=== PATIENT | male | born 1945 | race Caucasian/White ===

== ENCOUNTER 2018-09-04 08:28 | Inpatient (IN) | payer MEDICARE ==
[2018-09-04] VITALS (21 sets, daily range): BP systolic 80–183; BP diastolic 46–145
[~2018-09-04] VITALS: Ht 172.7 cm; Wt 99.8 kg
--- NOTE | 2018-09-04 08:28 | NUR ---
PATIENT BIB PARAMEDICS TO BED 12 AT THIS TIME.
--- NOTE | 2018-09-04 08:28 | NUR ---
STOREKEEPER HELPER AT BEDSIDE FOR BI-PAP.
[2018-09-04] MEDS ORDERED: NACL 0.9% 500 ML IV SCH (08:39)
[2018-09-04 09:05] LABS: BASOPHILS % (AUTO) 0.3 % (0.0-2.0); EOSINOPHILS % (AUTO) 0.1 % (0.0-4.0); HEMATOCRIT 43.5 % (36-52); HEMOGLOBIN 14.6 g/dL (12.0-18.0); LYMPHOCYTES # (AUTO) 1.2 K/uL (2.0-11.5); LYMPHOCYTES % (AUTO) 7.3 % (20.5-51.1); MEAN CORPUSCULAR HEMOGLOBIN 33 pg (27-31); MEAN CORPUSCULAR HGB CONC 34 g/dL (33-37); MEAN CORPUSCULAR VOLUME 96.7 fL (80-94); MONOCYTES # (AUTO) 0.3 K/uL (0.8-1.0); NEUTROPHILS # (AUTO) 14.7 K/uL (1.8-7.7); NEUTROPHILS % (AUTO) 90.3 % (42.2-75.2); PLATELET COUNT (AUTO) 327 K/uL (140-450); WHITE BLOOD COUNT (AUTO) 16.3 K/uL (4.8-10.8)
--- NOTE | 2018-09-04 09:05 | NUR ---
UPDATED IN THE LOBBY OF PT CONDITION
--- NOTE | 2018-09-04 09:05 | NUR ---
BIBA C/O SOB AND RT SIDED CP X3 HOURS. PT RR SHALLOW AND RAPID AT 33/MIN, O2 SAT AT 100% ON CPAP. PT REPORTS SHARP RT SIDED CP THAT RADIATES TO LT ARM. Put on monitor, IVF & respiritory ventilator. DENIES N/V/D; SKIN IS PINK/WARM/DRY; AAOX4 WITH EVEN; Wheezing auscultated; Tachycardia; PT DENIES ANY FEVER COUGH AT THIS TIME; PATIENT STATES PAIN OF 8/10 AT THIS TIME; VSS; PATIENT POSITIONED FOR COMFORT; HOB ELEVATED; BEDRAILS UP X2; BED DOWN. ER MD MADE AWARE OF PT STATUS.
[2018-09-04 09:16] LABS: ANION GAP 10.6 (8-16); CARBON DIOXIDE 30.5 mmol/L (21-32); CHLORIDE 97 mmol/L (98-107); CREATININE 1.1 mg/dL (0.7-1.3); GLUCOSE 230 mg/dL (74-106); POTASSIUM 4.1 mmol/L (3.5-5.1); SODIUM SERUM 134 mmol/L (136-145); UREA NITROGEN, BLOOD 21 mg/dL (7-18)
[2018-09-04 09:19] LABS: PROTHROMBIN TIME 10.1 secs (10.8-13.4)
[2018-09-04 09:23] LABS: ASPARTATE AMINOTRANSFERASE 18 U/L (15-37); TOTAL BILIRUBIN 1.1 mg/dL (0.0-1.0)
--- NOTE | 2018-09-04 10:33 | NUR ---
PT WAS NOT ABLE TO PEE. TRIED TWICE TO PUT URINE CATHETHER IN HIM BUT WAS UNABLE TO GET URINE. PT PEED BY HIMSELF.
[2018-09-04 10:41] LABS: APPEARANCE,URINE CLEAR (CLEAR); BILIRUBIN,URINE NEGATIVE (NEGATIVE); BLOOD, URINE 1+ (NEGATIVE); COLOR,URINE YELLOW (YELLOW); LEUKOCYTE ESTERASE ,URINE NEGATIVE (NEGATIVE); NITRITE, URINE NEGATIVE (NEGATIVE); PH,URINE 5.5 (5.0-9.0); UGLUCOSE NEGATIVE (NEGATIVE)
[2018-09-04] MEDS ORDERED: ASPIRIN 81 MG TAB.CHEW PO ONE (10:50)
[2018-09-04] MEDS ORDERED: LEVOFLOXACIN 500 MG/D5W PREMIX 100 ML IV ONE (10:50)
[2018-09-04] MEDS ORDERED: AZITHROMYCIN 1,000 MG in DEXTROSE 5% 500 ML IV ONE (10:50)
[2018-09-04] MEDS ORDERED: KETOROLAC 30 MG/ML VIAL IVP ONE (10:55)
[2018-09-04] MEDS ORDERED: AZITHROMYCIN 500 MG INJ VIAL IV ONE (11:05)
[2018-09-04 11:11] LABS: RBC,URINE 0-5 /HPF (0-5); WBC,URINE 0-5 /HPF (0-5)
--- NOTE | 2018-09-04 11:45 | NUR ---
PT HAS DONE WITH CT CONSENT FORM. CALLED CT ALREADY AND PT IS READT.
--- NOTE | 2018-09-04 11:57 | NUR ---
PT'S BLOOD PRESSURE IS 92/56 MMHG, HR 123, SAT 99%. DR GOMEZ MADE AWARE.
[2018-09-04] MEDS ORDERED: NACL 0.9% 1,000 ML IV ONE (12:00)
--- NOTE | 2018-09-04 12:03 | NUR ---
PT TO CT VIA CEM WITH RT/RN AND TECH IN STABLE CONDITION
--- NOTE | 2018-09-04 12:20 | NUR ---
Transported PT to CT and back with no incidents PT displayed no distress at the this time
[2018-09-04] MEDS ORDERED: HYDROCORTISONE NA SUCC 100 MG/2 ML VIAL IV ONE (14:05)
--- NOTE | 2018-09-04 15:46 | NUR ---
TALK TO RESIDENT ATHLETIC TRAINER GERALD AT [facility] FOR UPDATED INFORMATION OF PT
[2018-09-04] MEDS ORDERED: ENOXAPARIN 100 MG/ML SYR SUBQ ONE (15:55)
[2018-09-04] MEDS ORDERED: HYDROcodone/APAP 7.5/325 MG 1 TAB PO PRN (16:45)
[2018-09-04] MEDS ORDERED: DEXT 5% /NACL 0.9% 1,000 ML IV SCH ×2 (16:45→23:00)
[2018-09-04] MEDS ORDERED: ONDANSETRON 4 MG/2 ML VIAL IVP PRN (16:45)
[2018-09-04] MEDS ORDERED: ACETAMINOPHEN 325 MG TAB PO PRN (16:45)
--- NOTE | 2018-09-04 17:00 | NUR ---
RECEIVED PT TRANSFERRED FROM ER VIA GURNEY, REPORT OBTAINED AT BEDSIDE, PT IS AAOX4, ABLE TO FOLLOW COMMANDS AND MAKE NEEDS KNOWN, BP 138/71. HR 106, RR 25, TEMP 98.6F, O2 SAT 95%, DENIES PAIN, NO S/S OF DISTRESS, ON BIPAP, DIMINISHED LUNG SOUNDS ANGEL. A-FIB ON OPERATIONS STAFF SPECIALIST SECURITY, DENIES CHEST PAIN, SOFT ABDOMEN WITH ACTIVE BOWEL SOUNDS, CONTINENT WITH B&B'S, ABLE TO MOVE ALL EXTREMITIES, SKIN IS WARM AND DRY TO TOUCH, INTACT, IV SITE TO LEFT AC, 18GA, AND RIGHT HAND 22GA, PATENT AND SL. HOB ELEVATED 30 DEGREES, SAFETY MEASURES IN PLACE, INITIAL ASSESSMENT COMPLETED, WILL CONTINUE TO MONITOR.
--- NOTE | 2018-09-04 17:00 | NUR ---
PT TRANSPORTED TO ICU 3 WITHOUT INCIDENT.
--- NOTE | 2018-09-04 17:00 | NUR ---
Patient will be admitted to care of DR. ALLRED. Admited to ICU. Will go to room 3. Belongings list completed. Report to EDIS MCKEON.
--- NOTE | 2018-09-04 18:00 | NUR ---
ACCU CHECK WITH 306MG/DL, MD AWARE, WAITING FOR ORDERS.
--- NOTE | 2018-09-04 18:15 | NUR ---
REPORT GIVEN TO CRANE CREW SUPERVISOR NURSE AT BEDSIDE FOR CONTINUE OF CARE. PT IS AGITATED, WILL INTUBATED PER DR. CASTANO. Addendum: 09/04/18 at 1923 by Zuleyma Sanders RN WRONG TIME.
[2018-09-04] MEDS ORDERED: ALBUTEROL SULFATE/IPRATROPIU 3 ML SOL IH PRN (18:20)
[2018-09-04] MEDS ORDERED: DEXTROSE 50% 50 ML SYR IVP PRN (18:20)
[2018-09-04] MEDS ORDERED: ATOR40TA PO (18:24)
[2018-09-04] MEDS ORDERED: CLOP75TA26 PO (18:24)
[2018-09-04] MEDS ORDERED: GABA100C PO (18:24)
[2018-09-04 18:46] LABS: CHOL/HDL RATIO 1.6 (1-4.5); FREE T4 (FREE THYROXINE) 1.22 ng/dL (0.76-1.46); MAGNESIUM 1.2 mg/dL (1.8-2.4); PHOSPHORUS 3.7 mg/dL (2.5-4.9); THYROID STIMULATING HORMONE 1.46 uIU/mL (0.34-3.74)
--- NOTE | 2018-09-04 18:55 | NUR ---
DR. CASTANO CAME IN TO SEE PT AT BEDSIDE, WILL FOLLOW UP WITH NEW ORDERS.
[2018-09-04] MEDS ORDERED: MAG SULF 2000 MG/WATER PREMIX 50 ML IV ONE (19:00)
[2018-09-04] MEDS ORDERED: LEVOFLOXACIN 750 MG/D5W PREMIX 150 ML IV SCH (19:00)
[2018-09-04] MEDS: INSULIN LISPRO SLIDING SCALE 100 UNITS/ML VIAL SUBQ PRN ×2 (19:02→21:57)
[2018-09-04] MEDS ORDERED: NACL 0.9% 1,000 ML IV SCH (19:10)
--- NOTE | 2018-09-04 19:15 | NUR ---
REPORT GIVEN TO SUPERVISOR POLISHING NURSE AT BEDSIDE FOR CONTINUE OF CARE. PT IS AGITATED, WILL INTUBATED PER DR. CASTANO.
[2018-09-04] MEDS ORDERED: ROCURONIUM 50 MG/5 ML VIAL IV ONE (19:20)
[2018-09-04] MEDS ORDERED: ETOMIDATE 20 MG/10 ML VIAL IVP ONE (19:20)
--- NOTE | 2018-09-04 19:30 | NUR ---
pt was found on CPAP 10. EYAD AT BEDSIDE. DECIDED TO INTUBATE PT DUE TO INCREASED WORK OF BREATHING. PT WAS INTUBATED AT 1930 WITH A 7.5 ETT SECURED AT 23 MID LIP LINE. PT IS SEDATED AND IN NO CURRENT DISTRESS. ABG PENDING.
[2018-09-04] MEDS: ALBUTEROL SULFATE/IPRATROPIU 3 ML SOL IH SCH (19:40)
--- NOTE | 2018-09-04 19:40 | NUR ---
DR. CASTANO TO INTUBATE AT THIS TIME. RT AT BEDSIDE. RSI KIT USED.
[2018-09-04] MEDS ORDERED: PROPOFOL 1000 MG/100 ML PREMIX 100 ML IV ONE (19:43)
--- NOTE | 2018-09-04 20:10 | NUR ---
STARTED PROPOFOL DRIP. 5MCG/KG/MIN = 3ML. DRY WEIGHT USED 100KG
[2018-09-04] MEDS: PROPOFOL 1000 MG/100 ML PREMIX 100 ML IV PRN ×2 (20:39→23:15)
--- NOTE | 2018-09-04 20:55 | NUR ---
PT RESTLESS AT THIS TIME. CONTINUE TO BITE TUBE AND ATTEMPT TO FREE SELF FROM RESTRAINTS. PROPOFOL TITRATED UP TO 10 MCG/KG/MIN.
[2018-09-04] MEDS ORDERED: ENOXAPARIN 100 MG/ML SYR SUBQ SCH (21:00)
[2018-09-04] MEDS ORDERED: LOVENOX 1MG/KG Q12H SUBQ SCH (21:00)
[2018-09-04] MEDS: DOCUSATE SODIUM 100 MG GELCAP PO SCH (21:00)
--- NOTE | 2018-09-04 21:10 | NUR ---
PT RESTLESS AT THIS TIME. CONTINUE TO BITE TUBE AND ATTEMPT TO FREE SELF FROM RESTRAINTS. PROPOFOL TITRATED UP TO 15 MCG/KG/MIN.
[2018-09-04] MEDS: methylPREDNISolone SS 125 MG/2 ML VIAL IVP SCH (21:14)
--- NOTE | 2018-09-04 21:25 | NUR ---
PT CONTINUES TO BITE TUBE AND ATTEMPT TO FREE SELF FROM RESTRAINTS. PROPOFOL TITRATED UP TO 20 MCG/KG/MIN.
[2018-09-04] MEDS: BLOOD GLUCOSE MONITORING 1 DEV DEV FS SCH (21:41)
[2018-09-04] MEDS: PIPER/TAZO 3.375GM/D5W PREMIX 50 ML IV SCH (21:45)
[2018-09-04] MEDS ORDERED: PIPERACILLIN/TAZOBACTAM 3.375 GM VIAL IV ONE (21:49)
--- NOTE | 2018-09-04 21:50 | NUR ---
PT ATTEMPTS TO FREE SELF FROM RESTRAINTS. PROPOFOL TITRATED UP TO 25 MCG/KG/MIN.
[2018-09-04] MEDS ORDERED: DEXT 5% / NACL 0.9% 500 ML IV SCH (21:55)
--- NOTE | 2018-09-04 21:56 | NUR ---
SPUTUM SAMPLE OBTAINED. WILL SEND TO LAB.
--- NOTE | 2018-09-04 22:10 | NUR ---
PT AGITATED AT THIS TIME. CONTINUES TO BITE TUBE AND ATTEMPT TO FREE SELF FROM RESTRAINTS. PROPOFOL TITRATED UP TO 30 MCG/KG/MIN.
--- NOTE | 2018-09-04 22:25 | NUR ---
PT RESTLESS AT THIS TIME. CONTINUES TO BITE TUBE AND ATTEMPT TO FREE SELF FROM RESTRAINTS. PROPOFOL TITRATED UP TO 35 MCG/KG/MIN.
--- NOTE | 2018-09-04 23:06 | NUR ---
RECEIVED CRITICAL LAB TROPONIN 0.788. MADE AWARE
--- NOTE | 2018-09-04 23:38 | NUR ---
OGT AND GASTELUM CATH INSERTED AT THIS TIME. PT TOLERATED WELL.
--- NOTE | 2018-09-04 23:55 | NUR ---
CXR AT BEDSIDE AT THIS
--- NOTE | 2018-09-04 23:56 | NUR ---
EKG AT BEDSIDE AT THIS TIME
[2018-09-05] VITALS (104 sets, daily range): BP systolic 82–131; BP diastolic 41–99
--- NOTE | 2018-09-05 | NUR ---
ORAL CARE PROVIDED AT THIS TIME. NO SIGNS OF ACUTE DISTRESS NOTED.
[2018-09-05] MEDS: PROPOFOL 1000 MG/100 ML PREMIX 100 ML IV PRN ×3 (03:08→20:15)
[2018-09-05] MEDS: methylPREDNISolone SS 125 MG/2 ML VIAL IVP SCH ×3 (04:11→20:14)
[2018-09-05] MEDS: PIPER/TAZO 3.375GM/D5W PREMIX 50 ML IV SCH ×3 (04:11→20:15)
--- NOTE | 2018-09-05 04:48 | NUR ---
AM CARE PROVIDED AT THIS TIME.
[2018-09-05] MEDS ORDERED: ALBUTEROL SULFATE/IPRATROPIU 3 ML SOL IH SCH (06:00)
[2018-09-05 06:18] LABS: BASOPHILS % (AUTO) 0.1 % (0.0-2.0); HEMATOCRIT 38.4 % (36-52); HEMOGLOBIN 12.4 g/dL (12.0-18.0); LYMPHOCYTES # (AUTO) 0.4 K/uL (2.0-11.5); LYMPHOCYTES % (AUTO) 3.3 % (20.5-51.1); MEAN CORPUSCULAR HEMOGLOBIN 32 pg (27-31); MEAN CORPUSCULAR HGB CONC 32 g/dL (33-37); MEAN CORPUSCULAR VOLUME 98.3 fL (80-94); MONOCYTES # (AUTO) 0.4 K/uL (0.8-1.0); MONOCYTES % (AUTO) 2.7 % (1.7-9.3); NEUTROPHILS # (AUTO) 12.2 K/uL (1.8-7.7); NEUTROPHILS % (AUTO) 93.9 % (42.2-75.2); PLATELET COUNT (AUTO) 300 K/uL (140-450); RED CELL DISTRIBUTION WIDTH 15.2 % (11.6-13.7); WHITE BLOOD COUNT (AUTO) 12.9 K/uL (4.8-10.8)
[2018-09-05 06:24] LABS: ANION GAP 13.9 (8-16); CARBON DIOXIDE 25.4 mmol/L (21-32); CHLORIDE 98 mmol/L (98-107); CREATININE 1.3 mg/dL (0.7-1.3); GLUCOSE 399 mg/dL (74-106); MAGNESIUM 2.1 mg/dL (1.8-2.4); POTASSIUM 4.3 mmol/L (3.5-5.1); SODIUM SERUM 133 mmol/L (136-145); UREA NITROGEN, BLOOD 25 mg/dL (7-18)
--- NOTE | 2018-09-05 06:30 | NUR ---
DR. SALINAS AT BEDSIDE AT THIS TIME
[2018-09-05] MEDS: BLOOD GLUCOSE MONITORING 1 DEV DEV FS SCH ×4 (06:51→21:21)
[2018-09-05] MEDS: INSULIN LISPRO SLIDING SCALE 100 UNITS/ML VIAL SUBQ PRN ×4 (06:56→21:25)
--- NOTE | 2018-09-05 07:02 | NUR ---
CRITICAL LAB RESULT TROPONIN 1.865. MADE AWARE
--- NOTE | 2018-09-05 07:17 | NUR ---
ENDORSED CARE TO INCOMING SHIFT FOR CONTINUITY OF CARE
--- NOTE | 2018-09-05 07:18 | NUR ---
REPORT OBTAINED FROM PUBLIC HEALTH TECHNOLOGIST NURSE AT BEDSIDE, PT IS SEDATED RASS -3, FLACC 0, VSS, ETT TO VENT WITH FIO2 50, TV 500, R 18, PEEP 5. NO S/S OF DISTRESS, DIMINISHED LUNG SOUNDS ANGEL. O2 SAT 95%, SR ON VACUUM TECHNICIAN, DENIES CHEST PAIN, SOFT ABDOMEN WITH ACTIVE BOWEL SOUNDS, OGT IN PLACE, NO RESIDUALS AT THIS TIME, GASTELUM CATHETER IN PLACE WITH YELLOW CLEAR URINE VIA GRAVITY, ON SOFT RESTRAIN TO ANGEL. WRIST, NO INJURY NOTED, SKIN IS WARM AND DRY TO TOUCH, IV SITE TO RIGHT FOREARM, 22GA, RUNNING D5NS AT 70ML/HR, AND LEFT AC, 18GA RUNNING PROPOFOL AT 25 MCG/MIN, DRY WEIGHT 100KG USED ON PUMP, HOB ELEVATED 30 DEGREES, SCD AND SAFETY MEASURES IN PLACE, WILL CONTINUE TO MONITOR.
--- NOTE | 2018-09-05 07:30 | NUR ---
CENTRAL LINE TELEPHONE CONSENT OBTAINED FROM PT'S . TWO RNS WITNESS.
[2018-09-05] MEDS ORDERED: HEPARIN PER PHARMACY MC PRN (07:40)
[2018-09-05] MEDS ORDERED: hePARIN / DEXT 5% PREMIX 250 ML IV SCH ×2 (07:40→11:05)
--- NOTE | 2018-09-05 07:40 | NUR ---
DR. CASTANO CAME IN TO SEE PT AT BEDSIDE, UPDATED PT'S CONDITION, WILL FOLLOW UP WITH NEW ORDERS.
--- NOTE | 2018-09-05 07:50 | NUR ---
PROPOFOL HOLD AT THIS TIME PER DR. CASTANO FOR SEDATION VACATION.
[2018-09-05] MEDS ORDERED: HYDROmorphone 1 MG/ML AMP ONE (08:26)
[2018-09-05] MEDS: PANTOPRAZOLE 40 MG INJ VIAL IVP SCH (08:32)
[2018-09-05] MEDS: DOCUSATE SODIUM 100 MG GELCAP PO SCH ×2 (08:33→20:15)
[2018-09-05] MEDS: ASPIRIN 81 MG TAB.CHEW PO SCH (08:34)
[2018-09-05] MEDS ORDERED: HYDROmorphone 1 MG/ML AMP IVP SCH (08:35)
--- NOTE | 2018-09-05 08:42 | NUR ---
TIME OUT FOR CENTRAL LINE INSERTION, DR. ÁLVAREZ WILL PERFORM THE PROCEDURE, JAMIR, TECH AND RNLINDA AT BEDSIDE FOR ASSIST. 1MG OF DILAUDID GIVEN, PT RESTING IN BED, NO S/S OF DISTRESS, VSS.
--- NOTE | 2018-09-05 08:44 | NUR ---
RECEIVED INTUBATED PT WITH A 7.5 ETT SECURED @23 TEETH/GUMS ON VENT. SETTINGS AC/VC 18, VT 500, PEEP 5 AND FIO2 35%. PT SEDATED AT THIS TIME. PT HAVING CENTRAL LINE PROCEDURE. VENT ALARMS ON AND FUNCTIONING. AMBU BAG IS PRESENT NEAR BEDSIDE. WILL CONTINUE TO MONITOR.
--- NOTE | 2018-09-05 09:00 | NUR ---
CENTRAL LINE INSERTED TO RIJ, TLC, BY DR. SALINAS, PT TOLERATED WELL.
[2018-09-05] MEDS: ALBUTEROL SULFATE/IPRATROPIU 3 ML SOL IH SCH ×4 (09:16→19:18)
[2018-09-05] MEDS: BUDESONIDE 0.5 MG/2 ML NEBU INH SCH ×2 (09:16→19:18)
--- NOTE | 2018-09-05 11:34 | NUR ---
HEPARIN BOLUS GIVEN FOLLOWED BY HEPARIN DRIP STARTED AT 1000 UNITS, WEIGHT 80KG USED PER PHARMACY.
--- NOTE | 2018-09-05 11:36 | NUR ---
SEDATED NO EVIDENCE OF PULMONARY DISTRESS NOTED GOOD EQUAL CHEST RISE BREATH SOUNDS RHONCHI RIGHT SIDE; RALES LLL; CLEAR LINDA LML ENDOTRACHEAL SUCTION FOR SMALL THIN BLOOD TINGE YELLOW SECRETIONS AIRWAY PATENT
--- NOTE | 2018-09-05 13:30 | NUR ---
DR. PALOMARES CAME IN TO SEE PT AT BEDSIDE, WILL FOLLOW UP WITH NEW ORDERS.
--- NOTE | 2018-09-05 13:40 | NUR ---
RESTING NO SOB NOTED GOOD CHEST RISE FAMILY AT BEDSIDE
--- NOTE | 2018-09-05 16:00 | NUR ---
PM CARE AND F/C CARE PROVIDED, ORAL CARE DONE, POSITION CHANGED FOR OFF LOAD PRESSURE.
--- NOTE | 2018-09-05 16:07 | NUR ---
SEDATED GOOD CHEST RISE ENDOTRACHEAL SUCTION FOR MODERATE THICK BLOOD TINGE SECRETIONS AIRWAY PATENT
--- NOTE | 2018-09-05 17:49 | NUR ---
SEDATED TOLERATING VENTILATORY SUPPORT WELL WITHOUT INCIDENT NO DISTRESS NOTED GOOD EQUAL CHEST RISE NO SUCTIONING AT THIS TIME WIRELESS CONSULTANT TO MONITOR SATURATION 98% ON FIO2 OF 35% TITRATED FIO2 TO 30% LINDA/RN NOTIFIED
--- NOTE | 2018-09-05 18:00 | NUR ---
PT IS MORE WAKE UP, COUGHING NOTED, SUCTION PROVIDED WITH SMALL AMOUNT OF BLOODY MUCOUS, DR. REYES MADE AWARE.
[2018-09-05 18:02] LABS: PROTHROMBIN TIME 12.5 secs (10.8-13.4)
--- NOTE | 2018-09-05 19:19 | NUR ---
REPORT GIVEN TO LABORER SHIPYARD NURSE FOR CONTINUE OF CARE, PT IS IN STABLE CONDITION AT THIS TIME.
--- NOTE | 2018-09-05 19:53 | NUR ---
RECEIVED BEDSIDE REPORT FROM MORNING SHIFT RNLINDA. BP 101/66, SATING 95%, RR=18, HR 70, AFEBRILE, TEMP 97.0. AFIB ON CHOKE REAMER. PT IS ON ETT TO VENT, FIO2=30%,VT 500, RR=18, FLOW=40L/MIN, PEEP 5. LUNG SOUNDS DIMINISHED ON UPPER/LOWER BILATERAL BASES. BOWEL SOUNDS ACTIVE X 4, OGT IN PLACE, AUSCULTATED FOR PLACEMENT, RESIDUAL OF 40CC, GLUCERNA 1.2 INFUSING AT 20CC/HR. GASTELUM CATH IN PLACE, URINE IS PETER IN COLOR. RIGHT IJ CENTRAL LINE IN PLACE, INFUSING PROPOFOL AT 25MCG/MIN, AND HEPARIN AT 840UNITS/HR, NS TKO AT 5CC/HR. RED/PURPLE BRUISING ON RIGHT ARM, SKIN REMAIN INTACT/NORMAL IN COLOR. SCDS ON BILATERAL LEGS. HOB ABOVE 30 DEG, SIDE RAILS UP X4, STANDARD PRECAUTIONS MAINTAINED. ON BILATERAL SOFT WRIST RESTRAINTS. DRY WEIGHT FOR PROPOFOL AT 100KG.
--- NOTE | 2018-09-05 23:17 | NUR ---
REPOSITIONED, BED BATH, VAP ORAL CARE PROVIDED, MAX ASSIST X2. PT TOLERATED WELL, SUCTIONING PROVIDED. HOB ELEVATED ABOVE 30 DEG. SMALL BM/SMEAR, GASTELUM CATH IN PLACE AND PATENT. RASS -2 MAINTAINED, PT EASY TO AROUSE. REMAINS ON BILATERAL SOFT WRIST RESTRAINTS AND FIO2=30%.
[2018-09-06] VITALS (101 sets, daily range): BP systolic 92–141; BP diastolic 49–100
--- NOTE | 2018-09-06 00:28 | NUR ---
CALLED DR BROWN UPDATED ON NEED FOR CURRENT PTT DRAW DUE NOW TO TITRATE HEPARIN, WILL UPDATE ORDER.
--- NOTE | 2018-09-06 00:32 | NUR ---
SONIA FROM LAB AT BEDSIDE TO COLLECT SAMPLE FOR PTT.
--- NOTE | 2018-09-06 01:19 | NUR ---
PER HEPARIN PROTOCOL PTT 64.5, NO CHANGE IN CURRENT RATE.
[2018-09-06] MEDS: PROPOFOL 1000 MG/100 ML PREMIX 100 ML IV PRN ×5 (02:12→21:55)
[2018-09-06] MEDS: methylPREDNISolone SS 125 MG/2 ML VIAL IVP SCH ×3 (04:35→21:11)
[2018-09-06] MEDS: PIPER/TAZO 3.375GM/D5W PREMIX 50 ML IV SCH ×3 (04:36→21:10)
--- NOTE | 2018-09-06 04:41 | NUR ---
TITRATED PROPOFOL TO 30CG/MIN TO MAINTAIN RASS AT -2.
[2018-09-06 06:07] LABS: HEMOGLOBIN 11.5 g/dL (12.0-18.0); LYMPHOCYTES # (AUTO) 0.2 K/uL (2.0-11.5); LYMPHOCYTES % (AUTO) 1.5 % (20.5-51.1); MEAN CORPUSCULAR HEMOGLOBIN 32 pg (27-31); MEAN CORPUSCULAR HGB CONC 33 g/dL (33-37); MEAN CORPUSCULAR VOLUME 96.6 fL (80-94); MONOCYTES # (AUTO) 0.4 K/uL (0.8-1.0); MONOCYTES % (AUTO) 2.9 % (1.7-9.3); NEUTROPHILS # (AUTO) 13.4 K/uL (1.8-7.7); NEUTROPHILS % (AUTO) 95.6 % (42.2-75.2); PLATELET COUNT (AUTO) 298 K/uL (140-450); RED BLOOD CELL COUNT(AUTO) 3.63 MIL/uL (4.20-6.10); RED CELL DISTRIBUTION WIDTH 15.1 % (11.6-13.7)
--- NOTE | 2018-09-06 06:25 | NUR ---
DR SALINAS AT BEDSIDE TO SEE PT, UPDATED ON CONDITION.
[2018-09-06 06:32] LABS: CARBON DIOXIDE 27.6 mmol/L (21-32); CHLORIDE 102 mmol/L (98-107); CREATININE 0.9 mg/dL (0.7-1.3); GLUCOSE 347 mg/dL (74-106); POTASSIUM 3.6 mmol/L (3.5-5.1); SODIUM SERUM 137 mmol/L (136-145); UREA NITROGEN, BLOOD 24 mg/dL (7-18)
[2018-09-06 06:37] LABS: MAGNESIUM 2.5 mg/dL (1.8-2.4); PHOSPHORUS 2.4 mg/dL (2.5-4.9)
[2018-09-06] MEDS: ALBUTEROL SULFATE/IPRATROPIU 3 ML SOL IH SCH ×4 (06:55→19:03)
[2018-09-06] MEDS: BUDESONIDE 0.5 MG/2 ML NEBU INH SCH ×2 (06:55→19:05)
--- NOTE | 2018-09-06 06:55 | NUR ---
RECEIVED ON [employer]ylight Healthcare SystemsSCAPE R860 VENTILATOR PLUGGED INTO RED OUTLET TOLERATING WELL WITHOUT ADVERSE REACTIONS NOTED TO AN ENDOTRACHEAL TUBE #7.5 SECURED AT 23cm WITH AN ANCHOR FAST CUFF PRESSURE CHECKED NOTED AMBU BAG AT HOB SEDATED BUT AWAKE BREATH SOUNDS CLEAR BILATERAL WITH GOOD EQUAL CHEST RISE AIRWAY PATENT
[2018-09-06] MEDS: BLOOD GLUCOSE MONITORING 1 DEV DEV FS SCH ×4 (07:01→21:11)
--- NOTE | 2018-09-06 07:22 | NUR ---
GAVE BEDSIDE REPORT TO MORNING SHIFT ERI RANDHAWA.
--- NOTE | 2018-09-06 08:00 | NUR ---
PATIENT AWAKE ORIENTED TO PERSON, TIME SITUATION PLACE, CALM, OBEYS COMMANDS, ON PROPOFOL AT 30 MCG/KG/MIN. WEIGHT IN THE INFUSION PUMP RECEIVED SET AT 100 KGS., ENDOTRACHEAL TUBE 7.5 ON VENTILATOR FIO2 30%, AC 18, PEEP 5 VT 500, SINUS RHYTHM ON MONITOR, WITH OG TUBE AND ON ENTERAL GLUCERNA AT 40 ML/HR. NO RESIDUALS, PATENT ON AUSCULTATION, GLUCERNA INCREASED TO 50ML/HR., WITH GASTELUM CATHETER, CLEAR YELLOW URINE NOTED, WITH RIGHT IJ TRIPLE LUMEN CENTRAL LINE-SITE ASYMPTOMATIC, PROPOFOL INFUSING, HEPARIN 840 UNITS STARTED INFUSING 840 UNITS/HR., SMALL BLUISH DISCOLORATION ON BOTH ARMS AROUND VENIPUNCTURE SITES, BILATERAL SOFT WRIST RESTRAINTS AND WITH DOCTOR'S ORDER
[2018-09-06] MEDS: PANTOPRAZOLE 40 MG INJ VIAL IVP SCH (08:05)
[2018-09-06] MEDS: DOCUSATE SODIUM 100 MG GELCAP PO SCH ×2 (08:05→21:10)
[2018-09-06] MEDS: ASPIRIN 81 MG TAB.CHEW PO SCH (08:06)
--- NOTE | 2018-09-06 08:36 | NUR ---
PATIENT HAS BEEN SCREENED AND CATEGORIZED HIGH NUTRITION RISK. PATIENT WILL BE SEEN WITHIN 1-2 DAYS OF ADMISSION. 09/06/[address]
--- NOTE | 2018-09-06 09:11 | NUR ---
RESTING WELL ENDOTRACHEAL SUCTION FOR SMALL THICK YELLOW SECRETIONS AIRWAY PATENT
--- NOTE | 2018-09-06 09:21 | NUR ---
PATIENT'S AT THE BEDSIDE
--- NOTE | 2018-09-06 11:28 | NUR ---
SEDATED NO DISTRESS NOTED GOOD EQUAL CHEST RISE ENDOTRACHEAL SUCTION FOR MODERATE THICK BLOOD TINGE YELLOW SECRETIONS AIRWAY PATENT
[2018-09-06] MEDS: INSULIN LISPRO SLIDING SCALE 100 UNITS/ML VIAL SUBQ PRN ×3 (11:37→21:15)
--- NOTE | 2018-09-06 12:00 | NUR ---
DR CASTANO AT BEDSIDE
[2018-09-06] MEDS ORDERED: LOVENOX 1MG/KG Q12H SUBQ SCH (12:45)
[2018-09-06] MEDS ORDERED: ALBUTEROL SULFATE/IPRATROPIU 3 ML SOL IH SCH (13:08)
--- NOTE | 2018-09-06 13:25 | NUR ---
NO RESPIRATORY DISTRESS NOTED GOOD EQUAL CHEST RISE AIRWAY PATENT
--- NOTE | 2018-09-06 13:30 | NUR ---
HEPARIN DRIP OFF ORDERED
--- NOTE | 2018-09-06 13:32 | NUR ---
ECHO ONGOING AT BEDSIDE
--- NOTE | 2018-09-06 14:00 | NUR ---
PAGED DR. PALOMARES AND HE CALLED BACK. PER PHYSICIAN " MAY START PLAVIX 75 MG DAILY" READBACK AND VERIFIED
--- NOTE | 2018-09-06 14:53 | NUR ---
09/06/18 RD INITIAL ASSESSMENT COMPLETED PLEASE REFER TO NUTRITION ASSESSMENT UNDER CARE ACTIVITY FOR ESTIMATED NUTRITIONAL NEEDS. 1. CONTINUE GLUCERNA 1.2 AT 60 ML/HR -THIS WILL PROVIDE 1440 ML OF VOLUME, 1728 KCAL, AND 86 GM OF PROTEIN, WHICH MEETS 94% OF ENERGY NEEDS AND 82% OF PROTEIN NEEDS. 2. RECOMMEND INCREASING FREE WATER FLUSH TO [address] TO FOLLOW-UP 2-3 DAYS, HIGH RISK ELISSA MCNULTY RD
--- NOTE | 2018-09-06 15:46 | NUR ---
SEDATED NO SOB NOTED TOLERATING VENTILATORY WELL WITHOUT ADVERSE REACTIONS NOTED GOOD EQUAL CHEST RISE ENDOTRACHEAL SUCTION FOR LARGE THICK BLOOD TINGE YELLOW SECRETIONS AIRWAY PATENT
--- NOTE | 2018-09-06 16:16 | NUR ---
CASE MANAGEMENT: CM FAXED TRANSFER ORDER TO [facility] @ F . CM TO FOLLOW UP @ P .
--- NOTE | 2018-09-06 17:18 | NUR ---
SEDATED BUT IRRITABLE AT THIS TIME BREATH SOUNDS CLEAR BILATERAL WITH GOOD EQUAL CHEST RISE AND AERATION THROUGHOUT BILATERAL LUNG MUNGUIA AIRWAY PATENT
--- NOTE | 2018-09-06 19:05 | NUR ---
RECEIVED INTUBATED PT WITH A 7.5 ETT SECURED @23 TEETH/GUMS ON VENT. SETTINGS AC/VC 18, VT 500, PEEP 5 AND FIO2 30%. PT IRRITABLE AT THIS TIME BUT NOT IN ANY DISTRESS.VENT IS PLUGGED INTO A RED OUTLET WITH ALARMS ON AND FUNCTIONING. AMBU BAG IS PRESENT NEAR BEDSIDE. WILL CONTINUE TO MONITOR.
--- NOTE | 2018-09-06 19:10 | NUR ---
RECEIVED REPORT FROM EDIS HWANG. PATIENT ON PROPOFOL AT 40 MCG/KG/MIN. WEIGHT IN THE INFUSION PUMP RECEIVED SET AT 100 KGS., ENDOTRACHEAL TUBE 7.5 ON VENTILATOR FIO2 30%, AC 18, PEEP 5, VT 500, FLOW 40L, AND PMAX 45. SINUS RHYTHM ON MONITOR, WITH OG TUBE AND ON ENTERAL GLUCERNA AT 60 ML/HR. NO RESIDUALS, PATENT ON AUSCULTATION. PT WITH GASTELUM CATHETER, CLEAR YELLOW URINE NOTED, WITH RIGHT IJ TRIPLE LUMEN CENTRAL LINE SITE ASYMPTOMATIC, PROPOFOL INFUSING. DISCOLORATION NOTED ON BOTH ARMS AROUND VENIPUNCTURE SITES, BILATERAL SOFT WRIST RESTRAINTS AND WITH DOCTOR'S ORDER. VSS. BED IN LOWEST POSITION. WILL CONTINUE TO MONITOR.
--- NOTE | 2018-09-06 20:05 | NUR ---
PT WAKING UP, BANGING ON BED RAILS, AND LIFTING LEGS. INCREASED PROPOFOL TO 45MCG.
[2018-09-06] MEDS: ENOXAPARIN 100 MG/ML SYR SUBQ SCH (21:17)
--- NOTE | 2018-09-06 21:17 | NUR ---
ADMINISTERED SCHEDULED MEDICATIONS, PT TOLERATED WELL. LOVENOX WAS NOT AVAILABLE AND HAD TO GET FROM [facility]. [facility] BROUGHT LOVENOX 120MG/0.8ML, GAVE ONLY ORDERED 100MG IN WHAT CAME OUT TO BE 0.67ML.
[2018-09-06] MEDS ORDERED: IBUPROFEN 600 MG TAB PO PRN (22:35)
[2018-09-06] MEDS ORDERED: HYDROcodone/APAP 5/325 MG 1 TAB TAB PO PRN (22:35)
[2018-09-06] MEDS: MORPHINE SULFATE 2 MG/ML SYR IVP PRN (22:50)
--- NOTE | 2018-09-06 22:50 | NUR ---
PT UNDER SEDATION BUT STILL SHOWING SIGNS OF PAIN. ADMINISTERED MORPHINE, PT TOLERATED WELL.
[2018-09-07] VITALS (101 sets, daily range): BP systolic 102–170; BP diastolic 59–89
--- NOTE | 2018-09-07 | NUR ---
VSS, NO SIGNS OF DISTRESS NOTED. BED IN LOWEST POSITION, CALL LIGHT WITHIN REACH. WILL KEEP MONITORING CLOSELY.
[2018-09-07] MEDS: PROPOFOL 1000 MG/100 ML PREMIX 100 ML IV PRN ×8 (00:23→22:35)
--- NOTE | 2018-09-07 01:11 | NUR ---
VENT CHECK COMPLETED. PT SUCTIONED OBTAINED SMALL AMOUNT OF THICK CLEAR SECRETIONS WITH SMALL AMOUNTS OF BLOOD TINGED SECRETIONS, AIRWAY IS PATENT AND ETT IS SECURE. PT SEDATED AT THIS TIME NOT IN ANY DISTRESS. WILL CONTINUE TO MONITOR.
[2018-09-07] MEDS: MORPHINE SULFATE 2 MG/ML SYR IVP PRN (04:32)
--- NOTE | 2018-09-07 04:32 | NUR ---
PT FLACC 7, ADMINISTERED MORPHINE ORDERED , PT TOLERATED WELL.
[2018-09-07] MEDS: methylPREDNISolone SS 125 MG/2 ML VIAL IVP SCH ×3 (04:49→20:38)
[2018-09-07] MEDS: PIPER/TAZO 3.375GM/D5W PREMIX 50 ML IV SCH ×3 (04:49→20:38)
--- NOTE | 2018-09-07 05:30 | NUR ---
PT SEDATED AT THIS TIME NOT IN ANY DISTRESS. PT REMAINS ON DOCUMENTED VENT SETTINGS. ETT IS SECURE WITH A PATENT AIRWAY. VENT ALARMS REMAIN ON AND FUNCTIONING.
[2018-09-07 06:05] LABS: HEMATOCRIT 34.7 % (36-52); HEMOGLOBIN 11.4 g/dL (12.0-18.0); LYMPHOCYTES # (AUTO) 0.2 K/uL (2.0-11.5); LYMPHOCYTES % (AUTO) 2.2 % (20.5-51.1); MEAN CORPUSCULAR HEMOGLOBIN 32 pg (27-31); MEAN CORPUSCULAR HGB CONC 33 g/dL (33-37); MONOCYTES # (AUTO) 0.4 K/uL (0.8-1.0); MONOCYTES % (AUTO) 3.9 % (1.7-9.3); NEUTROPHILS # (AUTO) 10.3 K/uL (1.8-7.7); NEUTROPHILS % (AUTO) 93.9 % (42.2-75.2); PLATELET COUNT (AUTO) 294 K/uL (140-450); RED BLOOD CELL COUNT(AUTO) 3.58 MIL/uL (4.20-6.10); RED CELL DISTRIBUTION WIDTH 15.2 % (11.6-13.7)
[2018-09-07 06:31] LABS: ANION GAP 10.2 (8-16); CARBON DIOXIDE 28.6 mmol/L (21-32); CHLORIDE 104 mmol/L (98-107); POTASSIUM 3.8 mmol/L (3.5-5.1); SODIUM SERUM 139 mmol/L (136-145); UREA NITROGEN, BLOOD 31 mg/dL (7-18)
--- NOTE | 2018-09-07 06:33 | NUR ---
RECEIVED CRITICAL GLUCOSE OF 402, CHECKED HERE WITH ACCUCHECK AND IT WAS 387 NOW. ADMINISTERED INSULIN COVERAGE. PT TOLERATED WELL.
[2018-09-07 06:35] LABS: GLUCOSE 403 mg/dL (74-106)
[2018-09-07 06:43] LABS: MAGNESIUM 2.7 mg/dL (1.8-2.4); PHOSPHORUS 2.9 mg/dL (2.5-4.9)
[2018-09-07] MEDS: INSULIN LISPRO SLIDING SCALE 100 UNITS/ML VIAL SUBQ PRN ×4 (06:53→20:55)
[2018-09-07] MEDS: ALBUTEROL SULFATE/IPRATROPIU 3 ML SOL IH SCH ×4 (06:54→19:08)
--- NOTE | 2018-09-07 06:56 | NUR ---
RECEIVED PT ON DOCUMENTED SETTINGS, ALARMS ARE ON AND FUNCTIONAL, PTS EET SIZE 7.5 IS SECURE [address] FAST IN PL[address] BS CLEAR PT IN HF ASLEEP PTS HANDS RESTRAINED HHNS GIVEN I\L , BMV HOB, VENT PLUGGED INTO RED OUTLET
[2018-09-07] MEDS: BUDESONIDE 0.5 MG/2 ML NEBU INH SCH ×2 (07:06→19:08)
[2018-09-07] MEDS: BLOOD GLUCOSE MONITORING 1 DEV DEV FS SCH ×4 (07:22→20:38)
--- NOTE | 2018-09-07 07:25 | NUR ---
ENDORSED PT TO DAY SHIFT EDIS JIMENEZ. PT STABLE.
--- NOTE | 2018-09-07 08:00 | NUR ---
RECEIVED PATIENT ON PROPOFOL AT 50 MCG/KG/MIN. WEIGHT IN THE INFUSION PUMP RECEIVED SET AT 100 KGS., PATIENT OPENSA EYES TO VOICE, LOCALIZES TO PAIN, ENDOTRACHEAL TUBE 7.5 ON VENTILATOR FIO2 30%, AC 18, PEEP 5 VT 500, SINUS RHYTHM ON MONITOR, WITH OG TUBE AND ON ENTERAL GLUCERNA AT 60 ML/HR. 20 CC FEEDING RESIDUALS, PATENT ON AUSCULTATION, WITH GASTELUM CATHETER, CLEAR YELLOW URINE NOTED, WITH RIGHT IJ TRIPLE LUMEN CENTRAL LINE-SITE ASYMPTOMATIC, PROPOFOL INFUSING, SMALL BLUISH DISCOLORATION ON BOTH FOREARMS AROUND VENIPUNCTURE SITES, BILATERAL SOFT WRIST RESTRAINTS AND WITH DOCTOR'S ORDER
[2018-09-07] MEDS ORDERED: ACETAMINOPHEN 325 MG TAB PO PRN (08:15)
--- NOTE | 2018-09-07 08:45 | NUR ---
DR. CASTANO AT BEDSIDE. PHYSICIAN ORDERED TO TURN OFF PROPOFOL AND DO CPAP. PER PHYSICIAN PLAN IS TO "JUST GIVE HIM AN EXERCISE TODAY AND MAY PUT BACK TO AC AND SEDATION"
[2018-09-07] MEDS ORDERED: CLOPIDOGREL 75 MG TAB PO SCH (09:00)
--- NOTE | 2018-09-07 09:09 | NUR ---
PT RETURNED TO A/C WITH PREVIOUS SETTINGS PT HAD LOW VT
--- NOTE | 2018-09-07 09:09 | NUR ---
PER RT PATIENT IS BACK TO AC VENTILATOR SUPPORT. RESUMED PROPOFOL
[2018-09-07] MEDS: PANTOPRAZOLE 40 MG INJ VIAL IVP SCH (09:13)
[2018-09-07] MEDS: DOCUSATE SODIUM 100 MG GELCAP PO SCH ×2 (09:14→20:38)
[2018-09-07] MEDS: ASPIRIN 81 MG TAB.CHEW PO SCH (09:14)
[2018-09-07] MEDS: ENOXAPARIN 100 MG/ML SYR SUBQ SCH ×2 (09:21→20:59)
[2018-09-07] MEDS: INSULIN NPH HUM/REG INSULIN HM 100 UNIT/ML 10 ML VIAL SUBQ SCH ×2 (09:23→20:57)
--- NOTE | 2018-09-07 14:29 | NUR ---
CASE MANAGEMENT: TRANSFER ORDER HAS BEEN REFAXED TO [facility] F HERNANDO SPOKE WITH MARA (CM @ [facility] ) @ [phone] REGARDING TRANSFER. PER MARA, THEY WILL BE INITIATING TRANSFER TO EITHER [facility] OR [facility] DEPENDING ON BED AVAILABILITY. HERNANDO PROVIDED MARA CM CONTACT NUMBER AND ICU NURSING STATION CONTACT NUMBER IN CASE TRANSFER HAPPEN AFTER HOURS. CM TO FOLLOW UP NEEDED. Addendum: 09/07/18 at 1616 by Latricia Vo CM CONTACTED MARA (CM @ [facility] ) @ P REGARDING STATUS OF TRANSFER. PER MARA, SHE IS STILL CURRENTLY CHECKING FOR BED AVAILABILITY AT [facility] [place] OR [facility]. Addendum: 09/07/18 at 1620 by Latricia Vo CM CM MADE PATIENT's ( LAURA QUILES) @ REGARDING POSSIBLE TRANSFER TO [facility] FACILITY EITHER [place] OR [place] ONCE BED IS AVAILABLE. PATIENT IN AGREEMENT.
--- NOTE | 2018-09-07 18:30 | NUR ---
PATIENT'S AT BEDSIDE. MADE AWARE OF THE TRANSFER TO [facility] AT 2300HOURS ETA AND PATIENT WILL BE IN [place] ICU ROOM 227. NO PATIENT BELONGINGS T BEDSIDE
--- NOTE | 2018-09-07 18:35 | NUR ---
RECEIVED A CALL FROM [facility]. PATIENT WILL BE PICKED UP AT 2300 GOING TO [facility] ICU 224. TEL. NO. [phone]
--- NOTE | 2018-09-07 19:10 | NUR ---
RECEIVED BEDSIDE REPORT FROM DAY SHIFT RN, PATIENT INTUBATED AND ON VENTILATOR, VENT SETTINGS AT FIO2 30% VT 500 PEEP 5, O2SAT 95%, RR 18, EVEN AND UNLABORED, RT AT BEDSIDE, SUCTIONED PATIENT X1 FOR HIGH PRESSURE ALARM, PATIENTS RESPIRATORY DISTRESS RESOLVED, BP 121/66, HR 82, TEMP 97.4 F, SR ON TELE MONITOR. RIGHT IJ IN PLACE, DRESSING CLEAN AND INTACT, INFUSING PROPOFOL AT 50 MCG/KG/MIN WITH A DRY WEIGHT OF [address], CIRCULATION NOT COMPROMISED, CAP REFILL LESS THAN [address] SECONDS. O-TUBE IN PLACE INFUSING GLUCERNA AT 60 ML/HR. GASTELUM CATH IN PLACE DRAINING 600 ML CLEAR YELLOW URINE. SKIN INTACT, HOB AT 30 DEGREES, PATIENT TO BE TRANSFERRED TO [facility] IN [place] ICU.
--- NOTE | 2018-09-07 21:00 | NUR ---
SCHEDULED MEDICATIONS GIVEN, BG 318 MEDICATED WITH 12 UNITS HUMALOG ACCORDING TO SLIDING SCALE.
--- NOTE | 2018-09-07 21:45 | NUR ---
PATIENT WILL BE PICKED UP AT [phone].
--- NOTE | 2018-09-07 22:20 | NUR ---
GAVE REPORT TO ERWIN DIAMOND.
--- NOTE | 2018-09-07 23:07 | NUR ---
PATIENT TRANSPORTED TO [facility], PATIENT STABLE. Addendum: 09/07/18 at 2309 by Karly Loza RN KYM
--- NOTE | 2018-09-07 23:10 | NUR ---
DISHCARGE TO [facility] VIA [facility];L ENDORSED.
== END 2018-09-07 23:07 | disposition short-term general hospital (02) | DRG 871 ==
LOC: MED 08:28 → EDBD 08:28 → MIC 16:50
PROVIDERS: ADMIT General Practice; ATTEND General Practice
PROC: 5A1935Z Respiratory Ventilation, Less than 24 Consecutive Hours (ICD-10-PCS; 2018-09-04)
PROC: 5A09357 Assistance with Respiratory Ventilation, Less than 24 Consecutive Hours, Continuous Positive Airway Pressure (ICD-10-PCS; 2018-09-04)
PROC: 5A1945Z Respiratory Ventilation, 24-96 Consecutive Hours (ICD-10-PCS; principal; 2018-09-05)
PROC: 0BH17EZ Insertion of Endotracheal Airway into Trachea, Via Natural or Artificial Opening (ICD-10-PCS; 2018-09-05)
PROC: 02HV33Z Insertion of Infusion Device into Superior Vena Cava, Percutaneous Approach (ICD-10-PCS; 2018-09-05)
PROC: B548ZZA Ultrasonography of Superior Vena Cava, Guidance (ICD-10-PCS; 2018-09-05)
DX: A41.9 Sepsis, unspecified organism (principal); J96.21 Acute and chronic respiratory failure with hypoxia; I21.A1 Myocardial infarction type 2; J18.9 Pneumonia, unspecified organism; E87.1 Hypo-osmolality and hyponatremia; E44.0 Moderate protein-calorie malnutrition; E83.42 Hypomagnesemia; E66.9 Obesity, unspecified; I10 Essential (primary) hypertension; E78.5 Hyperlipidemia, unspecified; M19.90 Unspecified osteoarthritis, unspecified site; E11.65 Type 2 diabetes mellitus with hyperglycemia; E83.39 Other disorders of phosphorus metabolism; I25.10 Atherosclerotic heart disease of native coronary artery without angina pectoris; E83.41 Hypermagnesemia; J84.10 Pulmonary fibrosis, unspecified; Z71.3 Dietary counseling and surveillance; Z88.0 Allergy status to penicillin; Z95.5 Presence of coronary angioplasty implant and graft; Z68.33 Body mass index [BMI] 33.0-33.9, adult
CPT/HCPCS: 36415; 36600; 71045; 71275; 80048; 80053; 81001; 82140; 82150; 82803; 82948; 83036; 83605; 83690; 83735; 83880; 84100; 84439; 84443; 84484; 85025; 85610; 85730; 87040; 87070; 87081; 87086; 87205; 93005; 94003; 94640; 94660; 96361; 96365; 96366; 96367; 96372; 96375; 99291; C9113; J0456; J1170; J1644; J1650; J1720; J1815; J1885; J1956; J2270; J2543; J2704; J2930; J3475; J3490; J7030; J7042; J7060; J7620; J7626; Q0092; Q9967